=== PATIENT | female | born 1975 | race Caucasian/White ===

== ENCOUNTER 2019-05-19 09:43 | Emergency (ER) | payer SELFPAY ==
[2016-07-11 12:27] VITALS: Wt 136.1 kg
[~2019-05-19 09:43] MED LIST: LISD60CA2 PO; LOR5/325 PO; PROM12.557 PO
[2019-05-19] MEDS ORDERED: ADDE30XRPT PO (09:53)
[2019-05-19] MEDS ORDERED: NS(*) 0.9% 1000 ML BAG 1,000 ML IV ONE (09:58)
[2019-05-19] MEDS ORDERED: ONDANSETRON 4 MG/2 ML VIAL IVP ONE (10:10)
[2019-05-19] MEDS ORDERED: HYDROMORPHONE HCL 1 MG/ML SYRINGE IVP ONE (10:10)
--- NOTE | 2019-05-19 10:10 | ER Report ---
History and Physical Time Seen By MD: 10:06 Hx. of Stated Complaint: pt has hx of pancreatitis. Started with diarrhea last night, getting worse with n/v and abd pain, feeeling like her pancreatitis HPI/ROS CHIEF COMPLAINT: Epigastric abdominal pain, nausea and vomiting HISTORY OF PRESENT ILLNESS: [must have 4 elements] REVIEW OF SYSTEMS: Constitutional: [No fever, no chills.] Eyes: [No discharge.] ENT: [No sore throat.] Cardiovascular: [No chest pain, no palpitations.] Respiratory: [No cough, no shortness of breath.] Gastrointestinal: [No abdominal pain, no vomiting.] Genitourinary: [No hematuria.] Musculoskeletal: [No back pain.] Skin: [No rashes.] Neurological: [No headache.] Allergies: Coded Allergies: codeine (Verified Allergy, Unknown, 07/10/16) ketorolac (Verified Allergy, Unknown, 07/10/16) Home Meds Active Scripts Ondansetron Hcl (ZOFRAN) 4 Mg Tablet, 4 MG PO Q8H for Nausea, #15 TAB 0 Refills Prov:GOMEZ GALLOWAY MD 05/19/19 Hydrocodone Bit/Acetaminophen (HYDROCODON-ACETAMINOPHEN 5-325) 1 Each Tablet, 1 EACH PO Q4H PRN for PAIN, #15 TAB 0 Refills TAKE ONE TABLET BY MOUTH EVERY 4-6 HOURS NEEDED FOR PAIN Prov:GOMEZ GALLOWAY MD 05/19/19 Reported Medications Amphet Asp/Amphet/D-Amphet (ADDERALL XR 30 MG CAPSULE) 30 Mg Cap.er.24h, 30 MG PO QAM 05/19/19 Discontinued Reported Medications Lisdexamfetamine Dimesylate (VYVANSE) 60 Mg Capsule, 60 MG PO QDAY, CAPSULE 07/10/16 Discontinued Scripts Promethazine Hcl (PROMETHAZINE HCL) 12.5 Mg Tablet, 1-2 TAB PO Q6H PRN for NAUSEA, #20 TAB Prov:KADEEM DRAKE MD 07/13/16 Hydrocodone Bit/Acetaminophen (HYDROCODON-ACETAMINOPHEN 5-325) 1 Each Tablet, 1- 2 EACH PO Q4H PRN for PAIN, #30 TAB Prov:KADEEM DRAKE MD 07/13/16 Past Medical/Surgical History Past history of pancreatitis also a history of gallstones and gallbladder removal Hx Smoking: No Smoking Status: Never Smoker Hx Substance Use Disorder: No Hx Alcohol Use: Yes (rarely) Constitutional Vital Sign - Last 24 Hours 05/19/19 05/19/19 05/19/19 05/19/19 09:48 10:47 10:59 11:17 Temp 97.7 Pulse 99 91 88 Resp 22 B/P (MAP) 125/50 Pulse Ox 94 89 95 O2 Delivery Room Air O2 Flow Rate 2.0 05/19/19 05/19/19 05/19/19 11:37 11:47 12:00 Pulse 82 B/P (MAP) 127/80 (96) 121/71 (88) Pulse Ox 91 Physical Exam General/Constitutional: Patient is awake, alert, nontoxic and in no acute respiratory distress. Head: Normocephalic and atraumatic. Eyes: Conjunctival clear, . Sclera are clear and anicteric. Oropharyngeal: Mucous membranes are moist. There is no pharyngeal erythema or exudate. There are no palatal petechiae. Uvula is midline and symmetrical. Neck: Supple, no adenopathy. Cardiovascular: Heart is regular rate and rhythm without audible murmurs, rubs or gallops. Pulmonary: Lungs are clear to auscultation bilaterally. There are no wheezes, rales, or rhonchi. Chest rise is symmetrical Abdomen: Protuberant, no guarding or peritoneal signs, epigastric tenderness to palpation Extremities: No gross deformities, No peripheral cyanosis. Able to move all 4 extremities. Neuro: Alert and oriented X3, Skin: No rashes, skin is warm dry and well perfused. Medical Decision Making Data Points Result Diagram: 05/19/19 1006 05/19/19 1006 Laboratory Hematology Test 05/19/19 10:06 White Blood Count 12.0 k/uL (4.5-11.0) H Red Blood Count 4.73 M/uL (4.17-5.56) Hemoglobin 15.2 g/dL (12.0-16.0) Hematocrit 43.6 % (34.0-47.0) Mean Corpuscular Volume 92.2 fL (80.0-96.0) Mean Corpuscular Hemoglobin 32.1 pg (26.0-33.0) Mean Corpuscular Hemoglobin Concent 34.8 g/dL (32.0-36.0) Red Cell Distribution Width 13.1 % (11.5-14.5) Platelet Count 311 K/uL (150-450) Mean Platelet Volume 8.0 fL (7.2-11.1) Neutrophils (%) (Auto) 66.7 % (39.4-72.5) Lymphocytes (%) (Auto) 23.8 % (17.6-49.6) Monocytes (%) (Auto) 5.5 % (4.1-12.4) Eosinophils (%) (Auto) 3.1 % (0.4-6.7) Basophils (%) (Auto) 0.9 % (0.3-1.4) Nucleated RBC Relative Count (auto) 0.0 /100WBC Neutrophils # (Auto) 8.0 K/uL (2.0-7.4) H Lymphocytes # (Auto) 2.9 K/uL (1.3-3.6) Monocytes # (Auto) 0.7 K/uL (0.3-1.0) Eosinophils # (Auto) 0.4 K/uL (0.0-0.5) Basophils # (Auto) 0.1 K/uL (0.0-0.1) Nucleated RBC Absolute Count (auto) 0.00 K/uL Chemistry Test 05/19/19 10:06 Sodium Level 139 mmol/L (137-145) Potassium Level 3.4 mmol/L (3.5-5.0) Chloride Level 107 mmol/L (98-107) Carbon Dioxide Level 20 mmol/L (22-31) Blood Urea Nitrogen 14 mg/dl (7-18) Creatinine 0.80 mg/dl (0.52-1.04) Glomerular Filtration Rate Calc > 60.0 Random Glucose 128 mg/dl (75-110) Calcium Level 9.4 mg/dl (8.4-10.2) Total Bilirubin 0.6 mg/dl (0.2-1.3) Aspartate Amino Transf (AST/SGOT) 54 U/L (0-35) Alanine Aminotransferase (ALT/SGPT) 54 U/L (0-56) Alkaline Phosphatase 120 U/L (0-126) Total Protein 7.3 g/dl (6.3-8.2) Albumin 4.2 g/dl (3.5-5.0) Amylase Level 59 U/L (0-110) Lipase 96 U/L (23-300) Human Chorionic Gonadotropin, Qual Negative (NEGATIVE) Serology Test 05/19/19 10:06 Helicobacter pylori IgG Antibody Negative (NEGATIVE) Urinalysis Test 05/19/19 09:55 Urine Color Yellow Urine Clarity Slightly-cloudy Urine pH 6.0 pH (4.8-9.5) Urine Specific [place] 1.011 Urine Protein 30 mg/dL (NEGATIVE) Urine Glucose (UA) Negative mg/dL (NEGATIVE) Urine Ketones Negative mg/dL (NEGATIVE) Urine Blood Negative (NEGATIVE) Urine Nitrite Negative (NEGATIVE) Urine Bilirubin Negative (NEGATIVE) Urine Urobilinogen Negative mg/dL (0.2-1.9) Urine Leukocyte Esterase Negative (NEGATIVE) Urine RBC <1 /HPF (0-2/HPF) Urine WBC 5 /HPF (0-5/HPF) Urine Squamous Epithelial Cells Many /LPF (</=FEW) Urine Transitional Epithelial Cells Few /LPF (NONE-FEW) Urine Bacteria Negative /HPF (NONE-FEW) Urine Hyaline Casts Few /LPF (NONE-FEW) Urine Mucus Few /HPF (NONE-FEW) ED Course/Re-evaluation Clinical Indication for ER IV: Hydration, IV Access ED Course 05/19/2019 10:31:03 am After history and physical exam was performed differential diagnosis was formulated which includes but is not limited to acute pancreatitis, biliary colic, gastritis, H. pylori gastritis plan at this time will be IV fluids and give IV Dilaudid and Zofran for pain and nausea will give IV fluids keep the patient nothing by mouth arrange for CT scan with IV contrast of abdomen and pelvis 05/19/2019 10:40:05 am pain has improved after 1 mg of Dilaudid also was nauseous improved after 4 mg of IV Zofran Liver enzymes and lipase appear normal versus slight bump in the AST at 50 but this is not concerning patient's also tested negative for H. pylori. We are still awaiting CT scan of the abdomen and pelvis at this time. Decision to Disposition Date: May 19, 2019 Decision to Disposition Time: 11:53 Depart Departure Latest Vital Signs Vital Signs Date Time Temp Pulse Resp B/P (MAP) Pulse Ox O2 Delivery O2 Flow Rate FiO2 05/19/19 12:00 121/71 (88) 05/19/19 11:47 82 91 05/19/19 10:59 2.0 05/19/19 09:48 97.7 22 Room Air Impression: Primary Impression: Biliary colic symptom Condition: Improved Disposition: HOME OR SELF-CARE New Scripts Ondansetron Hcl (ZOFRAN) 4 Mg Tablet 4 MG PO Q8H for Nausea, #15 TAB 0 Refills Prov: GOMEZ GALLOWAY MD 05/19/19 Hydrocodone Bit/Acetaminophen (HYDROCODON-ACETAMINOPHEN 5-325) 1 Each Tablet 1 EACH PO Q4H PRN for PAIN, #15 TAB 0 Refills TAKE ONE TABLET BY MOUTH EVERY 4-6 HOURS NEEDED FOR PAIN Prov: GOMEZ GALLOWAY MD 05/19/19 Departure Forms: ER Transition Record, Medications Reconciliation, Off Work/School Form, School or Work Release?: Work Number of days to be released: 2 Patient Portal Information Patient Instructions: Biliary Colic (ED) Additional Instructions: If your symptoms worsen at any time return to the emergency department for reevaluation. GOMEZ GALLOWAY MD May 19, 2019 10:10
[2019-05-19 10:24] LABS: PLATELET COUNT, AUTOMATED 311 K/uL (150-450)
[2019-05-19] MEDS ORDERED: IOPAMIDOL 76% 100 ML INFUS BTL 100 ML ONE (10:31)
[2019-05-19] MEDS ORDERED: FAMOTIDINE(*) 20MG/50ML PREMIX 50 ML IVPB ONE (10:55)
--- NOTE | 2019-05-19 11:48 | RADIOLOGY IMAGING REPORT ---
FACILITY: [facility] [place] PATIENT NAME: Emilia Lao : 1975 MR: [id number] V: [id number] EXAM DATE: ORDERING PHYSICIAN: GOMEZ GALLOWAY TECHNOLOGIST: [place] [facility] [place] : 1975 Visit/Account:[id number] Date of Sevice: 05/19/2019 CT ABDOMEN PELVIS W/ CON Additional pertinent History: Epigastric pain TECHNIQUE: Spiral scan was through the abdomen and pelvis during injection of nonionic iodinated in travenous contrast. Contrast: 75 mL of IV Isovue 300. COMPARISON STUDIES: none. One of the following dose optimization techniques was utilized in the performance of this exam: Autom ated exposure control; adjustment of the mA and/or kV according to the patient's size; or use of an i terative reconstruction technique. Specific details can be referenced in the facility's radiology C T exam operational policy. FINDINGS: Liver / biliary: No focal liver lesions. Status post cholecystectomy with mild intrahepatic ductal di latation. Both right and left lobes slightly greater in the left lobe. Common bile duct measuring 5.5 mm in its proximal aspect. No distal duct dilatation. Pancreas: Pancreatic mass or inflammation noted. Spleen: Splenule measuring 1.4 cm anterior to the normal sized spleen. Adrenal glands: negative Kidneys / retroperitoneum: No parenchymal mass or abnormal enhancement. Pelvic structures: Status post hysterectomy. Bowel / peritoneum / mesenteries: No colonic mass lesion or inflammation. No evidence of appendicitis . Vessels: negative Musculoskeletal / Body wall: negative Lymph node assessment: negative Lower chest: negative IMPRESSION: 1. Status post cholecystectomy. Mild intrahepatic ductal dilatation left lobe greater than right. No common duct dilatation noted. CT scan otherwise unremarkable. Report Dictated By: Tyrell Cole MD at 05/19/2019 11:25 AM Report E-Signed By: Tyrell Cole MD at 05/19/2019 11:39 AM WSN:[email or web address]
[2019-05-19] MEDS ORDERED: LOR5/325 PO (11:57)
[2019-05-19] MEDS ORDERED: ONDA4TAB97 PO (11:57)
[2019-05-19 12:00] VITALS: BP 121/71
[2019-05-19] MEDS ORDERED: fentaNYL CITR 100 MCG/2 ML AMP IVP ONE (12:05)
== END 2019-05-19 12:15 | disposition home or self-care (01) ==
LOC: ER 09:45
DX: R10.13 Epigastric pain (principal); R11.2 Nausea with vomiting, unspecified; R19.7 Diarrhea, unspecified
CPT/HCPCS: 74177; 81001; 82150; 83690; 84703; 85025; 86677; 96361; 96365; 96375; 99284; J1170; J2405; J3010; J7030; Q9967; 82040; 82247; 82310; 82374; 82435; 82565; 82947; 84075; 84132; 84155; 84295; 84450; 84460; 84520